=== PATIENT | male | born 2005 | race Hispanic/Latino ===

== ENCOUNTER 2025-08-05 17:24 | Emergency (ER) | payer SELFPAY ==
[~2025-08-05] VITALS: Ht 177.8 cm; Wt 129.7 kg
--- NOTE | 2025-08-05 17:38 | ERN ---
ED Note History of Present Illness Stated Complaint: THROAT ISSUES Chief Complaint: Other Problems Time Seen by MD: 17:30 Dictation: PATIENT IS A 20-YEAR-OLD MALE WHO IS OBESE COMING IN TODAY WITH COMPLAINTS OF A CHOKING FEELING AND WHEN HE SLEEPS IT WAKES HIM UP FOR THE LAST 2-3 MONTHS. HE HAS A CLEAR VOICE, THERE WAS NO STRIDOR ON AUSCULTATION BILATERAL BREATH SOUNDS ARE CLEAR. HE HAS HAD NO FEVER NO CHILLS NO NAUSEA VOMITING. HE DENIES ANY HISTORY OF CANCER THYROID DISEASE OR APNEA. STATES THEY JUST MOVED TO THE [facility] FROM ANOTHER [facility] HOWEVER HE DID NOT HAVE THE PROBLEM UNTIL HE GOT TO [place]. HE HAS A AN UNDERLYING ANXIETY DURING THE CONVERSATION STATES HIS MOTHER AND ADVISED HIM TO COME TO THE HOSPITAL HAVE IT CHECKED OUT. Allergies: Coded Allergies: No Known Drug Allergies (Unverified Allergy, Unknown, 08/05/25) poison kristofer extract (Unverified Allergy, Unknown, 08/05/25) Past Medical History Past Medical History: No Pertinent History Surgical History: None RN Note Reviewed/Agreed w/PFSH: Yes Review of System Dictation CONSTITUTIONAL: NEGATIVE EXCEPT FOR HPI HEAD/FACE: NEGATIVE EXCEPT FOR HPI EENT: NEGATIVE EXCEPT FOR HPI CHOKING EPISODE OFF AND ON FOR THREE MONTHS WORSE AT NIGHT RESPIRATORY: NEGATIVE EXCEPT FOR HPI GASTROINTESTINAL/ABDOMINAL: NEGATIVE EXCEPT FOR HPI GENITOURINARY: NEGATIVE EXCEPT FOR HPI MUSCULOSKELETAL: NEGATIVE EXCEPT FOR HPI INTEGUMENTARY: NEGATIVE EXCEPT FOR HPI NEUROLOGICAL/PSYCH: NEGATIVE EXCEPT FOR HPI HEMATOLOGIC/LYMPHATIC: NEGATIVE EXCEPT FOR HPI ALL SYSTEMS NEGATIVE, EXCEPT NOTED ABOVE. 13 POINT REVIEW OF SYSTEMS ASSESSED AND ALL NEGATIVE EXCEPT FOR ABOVE. Initial Vital Sign VS Vital Signs Date Time Temp Pulse Resp B/P (MAP) Pulse Ox O2 Delivery O2 Flow Rate FiO2 08/05/25 17:30 98.8 90 18 154/77 99 0 08/05/25 17:55 Room Air* 21 Physical Exam Dictation VITAL SIGNS REVIEWED GENERAL APPEARANCE: ALERT, ORIENTED X 3, NO ACUTE DISTRESS, WELL DEVELOPED, NOURISHED. HEAD AND FACE: NON-TRAUMATIC. EYES: PERRL, PINK CONJUNCTIVAS, EYELID NO TRAUMA, ANTERIOR CHAMBER WITH ARCUS SENILIS. EARS: PINNAS INTACT AND NO SIGNS OF TRAUMA OR ERYTHEMA EAR CANALS CLEAR AND NO DISCHARGE TM NO ERYTHEMA NOSE: NO DISCHARGE, NO BLEEDING. OROPHARYNX: MOUTH NORMAL, TONGUE PINK, PHARYNX CLEAR,NO ERYTHEMA, TONSILS NO EXUDATES, NO ABSCESSES NOTED, MUCOUS MEMBRANE MOIST UVULA MIDLINE, VOICE IS CLEAR NO MASSES AND ONLY NECK: SUPPLE, NON-TENDER, NO THYROMEGALY, NO MASSES, NO JVD, NO BRUITS BREAST:DEFERRED CHEST:NO TENDERNESS, NO CREPITUS, NO PARADOXICAL MOVEMENT, NO RETRACTIONS LUNGS:CLEAR, WELL-VENTILATED, SYMMETRIC, NO RALES, NO WHEEZING, NO RHONCHI, NO STRIDOR, GOOD BREATH SOUNDS BILATERALLY HEART: REGULAR RATE, REGULAR RHYTHM, NO MURMUR, NO GALLOPS VASCULAR: NO PERIPHERAL EDEMA, ABDOMEN: SOFT, POSITIVE BOWEL SOUNDS, NONDISTENDED, NO GUARDING, NONTENDER, NO REBOUND, NO MASSES NO HEPATOMEGALY, NO SPLENOMEGALY, NO PUGH'S SIGN, NO HERNIAS. RECTAL: DEFERRED GENITAL: DEFERRED NEUROLOGICAL: NORMAL SPEECH, MOTOR FUNCTION INTACT, SENSORY FUNCTION INTACT MUSCULOSKELETAL: NECK NONTENDER, FULL RANGE OF MOTION, BACK NONTENDER, FULL RANGE OF MOTION, EXTREMITIES: NONTENDER, FULL RANGE OF MOTION SKIN: COLOR PINK, DRY, NO TURGOR, NO RASH, NO LACERATIONS, NO ABRASIONS, NO CONTUSIONS. LYMPHATIC: DEFERRED Results (Laboratory/Radiology) Laboratory/Radiology Laboratory Tests Test 08/05/25 18:21 Group A Streptococcus Rapid negative (NEGATIVE) 1810/SOFT TISSUE NECK NEGATIVE Labs Reviewed?: Yes ED Course ED Course Orders Procedure Category Date Status Time Neck Soft Tissue RAD 08/05/25 Resulted 17:34 Rapid (Group A Strep) LAB 08/05/25 Complete 17:34 Vital Signs Date Time Temp Pulse Resp B/P (MAP) Pulse Ox O2 Delivery O2 Flow Rate FiO2 08/05/25 17:55 99.3 74 18 146/67 100 Room Air* 0 21 08/05/25 17:30 98.8 90 18 154/77 99 0 1920/patient will be discharged home with family after negative strep Negative physical examination Negative soft tissue neck Patient and mother advised to take him to a physician for sleep study to rule out apnea List of providers given to her from [facility] staff Medical Decision Making MDM Medical decision-making based on swabs for strep and soft tissue neck to rule out lesions Swabs for strep negative Soft tissue x-ray negative Patient discharged with a advised to follow up with the primary care doctor in strongly suggest DX & DISP Disposition: Discharge Departure Impression: Primary Impression: Sleep related choking sensation Condition: Stable Additional Instructions: Follow-up with primary care provider in 1 to 2 days. Take medications as directed here in the emergency room. Okay to continue home medications unless otherwise discussed during your visit in the emergency room today. Return to your nearest emergency room if symptoms worsen or if there is no improvement. Call 911 if you need immediate assistance. Take Tylenol or Motrin [id number] as needed and if no contraindications are present. Increase oral hydration. A wound culture or urine culture was ordered here in the emergency room department please follow-up with primary care provider and advise them to get repeat ports from our facility. If you had any Jorge wrap/splints that were applied here, please do not remove them until you see your primary care or specialty. Follow up with the primary care doctor in the next 1-2 days, call one of the doctors on the list provided you for a follow up. Strongly suggest a sleep study to rule out obstructive apnea or sleep apnea Referrals: SELF,REFERRAL (PCP) Time of Disposition: 19:21 I have reviewed the case, and I agree with, Diagnosis and Plan BRENDA BATES Aug 05, 2025 17:38
--- NOTE | 2025-08-05 18:36 | HMCIMG ---
EXAM: CR Soft Tissue Neck, 2 View. CLINICAL HISTORY: CHOKING FEELING FOR THREE MONTHS COMPARISON: None provided. FINDINGS: SOFT TISSUES: Large anterior osteophytes at C5-C6 likely result in posterior mass effect upon the esophagus at this level. Recommend esophagram on a nonemergent basis for further evaluation. Otherwise, soft tissues are unremarkable. No retropharyngeal soft tissue swelling or gas. EPIGLOTTIS: No epiglottic thickening. BONES: No acute osseous abnormality. IMPRESSION: 1. Large anterior osteophytes at C5-C6 likely causing mass effect on the esophagus. /[place]
[2025-08-05 20:05] VITALS: BP 134/58; PULSE 81; RESP 18; TEMP 99; O2SAT 100
== END 2025-08-05 20:22 | disposition home or self-care (01) ==
LOC: EDH 17:24
DX: R09.89 Other specified symptoms and signs involving the circulatory and respiratory systems (principal)
CPT/HCPCS: 70360; 87880; 99284